=== PATIENT | male | born 1980 | race Caucasian/White ===

== ENCOUNTER → 2019-05-22 | Outpatient (CLI) | payer BC ==
--- NOTE | 2019-05-24 10:04 | SLE ---
[facility] [place] [address] POLYSOMNOGRAPHY STUDY Name: SABRINA HINKLE Room #: REG [facility]#: [id number] Admission: 05/22/19 Attend Phys: Dilip Manzano MD Discharge: Date of : 78 Report #: [id number] THIS REPORT FOR: //name// CC: Dilip Vicente MD DATE OF SERVICE: 05/22/2019 SLEEP STUDY REFERRING PHYSICIAN: Dr. Alexander Vicente. HISTORY OF PRESENT ILLNESS: The patient is 38-year-old who weighs 250 pounds with a BMI of 38. The patient's [place] score was 8. The patient underwent sleep study performed at [facility]. It was supposed to be a split night study, but there was not enough time to do the CPAP titration as the patient's sleep efficiency was reduced. During the night study, the patient spent 467 minutes in bed and slept for 160 minutes with a low sleep efficiency of 34%. Sleep latency was 22.8 minutes with an absent REM sleep. Sleep architecture showed increased stage 1 and stage 2 sleep, absent slow wave and absent REM sleep. During the initial diagnostic portion of the study, the patient spent 339 minutes in bed and slept for 158 minutes. During that time, the patient had 11 obstructive apneas, no mixed apneas, 16 central apneas and 77 hypopneas. The patient's AHI was 39.5 per hour. REM sleep was not observed. Supine AHI of 39.1 per hour. EKG monitoring revealed an average heart rate of 74 beats per minute. No sustained arrhythmias observed. PLMS were seen at an index of 17 per hour and none caused EEG arousals. Nocturnal oximetry study revealed an average oxygen saturation of 95% with the lowest of 79%. Eight minutes were spent in oxygen saturation of less than 89%. The patient did meet the criteria for CPAP initiation. However, the patient never slept while on CPAP. As a result, there was not enough time to do the CPAP titration study. IMPRESSION: 1. Severe sleep apnea-hypopnea syndrome at an AHI of 39 per hour. 2. Severely reduced sleep efficiency of 34%, resulting from sleep maintenance insomnia. [facility] [address] [place] [address] POLYSOMNOGRAPHY STUDY Name: HARSHDIALLOSABRINA Poonam Room #: REG [facility].#: [id number] Admission: 05/22/19 Attend Phys: Dilip Manzano MD Discharge: Date of : 78 Report #: [id number] 3. Mild periodic limb movements without any EEG arousals. This does not need to be treated. 4. Mild nocturnal hypoxia secondary to obstructive sleep apnea. RECOMMENDATIONS: 1. The patient should return to the sleep lab for full night CPAP titration study. 2. Once the patient is optimally treated with CPAP, then follow up in 4-6 weeks to assess compliance and to document clinical improvement. 3. Weight loss is strongly advised. 4. Avoid [employer] depressants. 5. Cautioned regarding driving until symptoms of sleep apnea resolve. 6. If the patient has chronic insomnia, then it should be further evaluated and treated according to the etiology. The patient's sleep efficiency was 34% on the night of the study. <ELECTRONICALLY SIGNED> By: Dilip Manzano MD 05/24/19 [id number] [id number] Dilip Manzano MD /nt
== END ==
LOC: SLEEPLAB 12:42
DX: G47.33 Obstructive sleep apnea (adult) (pediatric) (principal); G47.30 Sleep apnea, unspecified

== ENCOUNTER → 2019-07-14 | Outpatient (CLI) | payer BC | LOC: SJCVCIMAG 09:08 | DX: R00.2 Palpitations (principal); E78.5 Hyperlipidemia, unspecified ==